=== PATIENT | female | born 2000 | race American Indian/Alaskan Native ===

== ENCOUNTER 2022-06-01 00:40 | Emergency (ER) | payer SELFPAY ==
[2022-06-01 07:54] VITALS: BP 117/74
--- NOTE | 2022-06-01 08:07 | Emergency Department Report ---
- General Chief complaint: Skin/Abscess/Foreign Body Stated complaint: LUMPS UNDER ARM Time Seen by Provider: 06/01/22 07:46 Source: patient Mode of arrival: Ambulatory Limitations: No Limitations - History of Present Illness MD complaint: abscess/boil, lesion, discoloration -: Gradual Location: LUE Severity: mild, moderate Quality: aching, dull Consistency: constant Improves with: none Worsens with: none Context: none Associated symptoms: denies other symptoms - Related Data Allergies Allergy/AdvReac Type Severity Reaction Status Date / Time amoxicillin Allergy Unknown Verified 06/01/22 00:50 Abscess Boil HPI - HPI Chief Complaint: Skin/Abscess/Foreign Body Stated Complaint: LUMPS UNDER ARM Time Seen by Provider: 06/01/22 07:46 Allergies/Adverse Reactions: Allergies Allergy/AdvReac Type Severity Reaction Status Date / Time amoxicillin Allergy Unknown Verified 06/01/22 00:50 ED Review of Systems ROS: Stated complaint: LUMPS UNDER ARM Other details as noted in HPI Comment: All other systems reviewed and negative ED Past Medical Hx - Social History Smoking Status: Never Smoker Substance Use Type: Alcohol ED Physical Exam - General Limitations: No Limitations General appearance: alert, in no apparent distress - Head Head exam: Present: atraumatic, normocephalic - Eye Eye exam: Present: normal appearance, PERRL, EOMI - ENT ENT exam: Present: mucous membranes moist - Neck Neck exam: Present: normal inspection, full ROM - Respiratory Respiratory exam: Present: normal lung sounds bilaterally. Absent: respiratory distress, wheezes, rales, chest wall tenderness - Cardiovascular Cardiovascular Exam: Present: regular rate, normal rhythm. Absent: systolic mur mur, diastolic murmur, rubs, gallop - GI/Abdominal GI/Abdominal exam: Present: soft, normal bowel sounds - Extremities Exam Extremities exam: Present: normal inspection - Back Exam Back exam: Present: normal inspection - Neurological Exam Neurological exam: Present: alert, oriented X3 - Psychiatric Psychiatric exam: Present: normal affect, normal mood - Skin Skin exam: Present: warm, dry, intact, normal color. Absent: rash ED Course Vital Signs 06/01/22 06/01/22 00:50 07:53 Temperature 98.3 F 97.7 F Pulse Rate 80 87 Respiratory 18 18 Rate Blood Pressure 134/70 Blood Pressure 117/74 [Left] O2 Sat by Pulse 97 99 Oximetry Critical care attestation.: If time is entered above; I have spent that time in minutes in the direct care of this critically ill patient, excluding procedure time. ED Disposition Condition: Stable
== END 2022-06-01 10:39 | disposition home or self-care (01) ==
LOC: ED 00:40
DX: L02.91 Cutaneous abscess, unspecified (principal); Z91.09 Other allergy status, other than to drugs and biological substances
CPT/HCPCS: 99282